=== PATIENT | male | born 1950 | race Caucasian/White ===

== ENCOUNTER → 2018-01-06 | Outpatient (CLI) | payer OTHER ==
[~2018-01-06] VITALS: Ht 289.6 cm; Wt 98.9 kg
[~2018-01-06] MED LIST: ALKA-SELTZER H1 EACH PO; ALLERGY RELIEF10 M5 PO; ASPIR 8181 MG PO; DULERA 100 MCG/13 GM INH; FIBER350 GM PO; FISH OIL 1,001000 M2 PO; GLIPIZIDE5 MG PO; METFORMIN HCL1000 MG PO; PRILOSEC 20 MG20 MG PO; STOOL SOFTENER100 M1 PO; TRADJENTA5 MG; TRICOR145 MG PO
--- NOTE | ~2018-01-06 | P ---
[facility] [place] [address] PROCEDURE REPORT Name: MORTEZA GRIMES [id number] Admission: 01/06/18 Attend Phys: Kenny Mclean Discharge: Date of : 46 Report #: [id number] THIS REPORT FOR: //name// CC: Kenny Mccoy MD DATE OF SERVICE: 01/06/2018 PROCEDURE PERFORMED: Colonoscopy. HISTORY OF PRESENT ILLNESS: The patient is a 67-year-old male with previous history of colon polyps approximately 7 years ago. He has a strong family history of colon cancer as well including two brothers and uncles. He denies any symptoms at this time. DESCRIPTION OF PROCEDURE: The risks and benefits of the procedure were explained to the patient, those risks including but not limited to bleeding, perforation and the risk of sedation. He understood these risks and gave informed consent. Sedation was given using propofol per anesthesia. Next, a digital rectal exam was initially performed, which was normal. Next, using a standard Olympus colonoscope, the scope was placed in the patient's anus and advanced under direct vision to the cecum. The overall prep was excellent. The cecum and ileocecal valve were normal in appearance. The ascending, transverse and descending colon were normal. A few scattered diverticula were noted in the sigmoid colon. No evidence of inflammation, otherwise normal. The rectal mucosa was normal. On retroflexion, no abnormalities were noted. The scope was then withdrawn and the procedure terminated. The patient tolerated the procedure well. IMPRESSION: 1. Sigmoid diverticulosis. 2. Otherwise, normal colonoscopy. RECOMMENDATIONS: Repeat colonoscopy in 5 years due to family history. Thank you for allowing me to participate in his care. By: [id number] Kenny Bains MD /nt
== END | disposition home or self-care (01) ==
LOC: GI 07:54
DX: Z12.11 Encounter for screening for malignant neoplasm of colon (principal); Z86.010 Personal history of colon polyps; Z80.0 Family history of malignant neoplasm of digestive organs; K57.30 Diverticulosis of large intestine without perforation or abscess without bleeding; J45.909 Unspecified asthma, uncomplicated; R56.9 Unspecified convulsions; Z87.891 Personal history of nicotine dependence; E78.5 Hyperlipidemia, unspecified; Z98.890 Other specified postprocedural states; Z85.828 Personal history of other malignant neoplasm of skin; K21.9 Gastro-esophageal reflux disease without esophagitis; E11.9 Type 2 diabetes mellitus without complications; Z90.49 Acquired absence of other specified parts of digestive tract
CPT/HCPCS: 62110; 62900

== ENCOUNTER 2018-08-27 08:49 | Inpatient (IN) | payer OTHER ==
[~2018-08-27] VITALS: Ht 165.1 cm; Wt 103.4 kg
[2018-08-27 08:52] VITALS: BP 162/82
[2018-08-27 09:20] LABS: URINE BILIRUBIN NEGATIVE (Negative); URINE BLOOD NEGATIVE (Negative); URINE CLARITY CLEAR; URINE COLOR YELLOW; URINE GLUCOSE-RANDOM* 1+ (Negative); URINE KETONES NEGATIVE (Negative); URINE LEUKOCYTES-REFLEX NEGATIVE (Negative); URINE NITRITE-REFLEX NEGATIVE (Negative); URINE PROTEIN (DIPSTICK) NEGATIVE (Negative); URINE UROBILINOGEN 0.2 E.U./dl (0.2-1.0)
[2018-08-27 09:22] LABS: HEMATOCRIT 37.4 % (42.0-52.0); HEMOGLOBIN 12.5 gm/dL (14.0-18.0); MCHC 33.4 g/dL (28.0-37.0); MCV 86.9 fL (80.0-100.0); RBC 4.3 mil/uL (4.50-6.00); RDW 14.9 % (10.5-14.5); WBC 4.9 thou/uL (4.0-11.0)
[2018-08-27 09:30] LABS: ANION GAP 11 mmol/L (7-16); BUN 13 mg/dL (7-18); CALCIUM 9.1 mg/dL (8.5-10.1); CHLORIDE 103 mmol/L (98-107); CO2 23 mmol/L (21-32); CREATININE 0.9 mg/dL (0.7-1.3); GLUCOSE 251 mg/dL (74-106); POTASSIUM 3.9 mmol/L (3.5-5.1); SODIUM 137 mmol/L (136-145)
[2018-08-27 09:37] LABS: ALBUMIN 3.8 g/dL (3.4-5.0); LIPASE 61 U/L (73-393); SGOT 25 U/L (15-37); SGPT 39 U/L (30-65); TOTAL BILIRUBIN 0.3 mg/dL (<0.1-1.0); TOTAL PROTEIN 7.2 g/dL (6.4-8.2); TROPONIN-I <0.06 ng/mL (<0.06)
[2018-08-27] MEDS ORDERED: KRILL OIL 5001 EACH PO (09:39)
--- NOTE | 2018-08-27 10:10 | NUR ---
PT TO CT VIA CART.
--- NOTE | 2018-08-27 10:22 | NUR ---
BACK FROM CT.
--- NOTE | 2018-08-27 12:17 | EKG ---
[place] [address] [employer] [facility] [place] [address] ELECTROCARDIOGRAM REPORT Name: MORTEZA GRIMES Room #: 170-9 ADM IN M.R.#: [id number] ������������������ Admission: 08/27/18 ������������������ Attend Phys: Sylvester Shea MD Discharge: ������������������ Date of : 46 Report #: [id number] ����������������������������������������������������������������� [id number] THIS REPORT FOR: //name// [facility] ED Test Date: 2018-08-27 Test Time: 09:11:04 Pat Name: MORTEZA GRIMES Department: Room: 170 Gender: M Pm Technician: ADIS : 1950 Requested By: Michelle Collins Order Number: [id number] MD: Ned Camacho Measurements Intervals [place] Rate: 72 P: 54 [place]: 165 QRS: 23 QRSD: 104 T: 8 QT: 402 QTc: 440 Interpretive Statements Sinus rhythm Early transition Consider inferior infarct Nonspecific ST-T wave changes No previous ECG available for comparison Electronically Signed On 08-27-2018 12:16:44 PUBLIC SPEAKING INSTRUCTOR by Ned Camacho [email or web address] ��������������������������������������������� <ELECTRONICALLY SIGNED> ���������������������������������������� By: Ned Camacho MD ��������������������������������������������� 08/27/18 1216 0 0 Ned Camacho MD /EPI
[2018-08-27 14:17] VITALS: BP 132/78
[2018-08-27 14:27] VITALS: BP 142/78
[2018-08-27 14:43] VITALS: BP 143/78
[2018-08-27 17:03] VITALS: BP 150/82
--- NOTE | 2018-08-27 19:39 | NUR ---
ASSUMED CARE OF PT AT APPROX 1500. ARRIVED FROM ED IN STABLE CONDITION. ADMISSION ASSESSMENT COMPLETED. A&O, X4. REPETITIVE SPEECH NOTED AT TIMES. C/O ABD PAIN, N/V. PAIN MEDS GIVEN ORDERED. MAINTAINING NPO STATUS. PT LIVES IN A DUPLEX WITH HIS . USUALLY USES A CANE TO GET AROUND. NO OXYGEN, NO HEARING AIDS, NO DENTURES. PT HAS SHOES, JEANS, COAT ONLY. ACHS, NO INSULIN NEEDED THIS SHIFT. VSS. PT IN STABLE CONDITION.
[2018-08-27 20:13] VITALS: BP 147/86
[2018-08-28 06:02] VITALS: BP 133/82
[2018-08-28 07:16] LABS: HEMATOCRIT 34.2 % (42.0-52.0); MCH 30.4 pg (26.0-34.0); MCHC 35.1 g/dL (28.0-37.0); MCV 86.6 fL (80.0-100.0); RBC 3.95 mil/uL (4.50-6.00); RDW 14.9 % (10.5-14.5); WBC 3.5 thou/uL (4.0-11.0)
[2018-08-28 07:35] LABS: CALCIUM 8.6 mg/dL (8.5-10.1); CREATININE 0.9 mg/dL (0.7-1.3); POTASSIUM 4.2 mmol/L (3.5-5.1)
--- NOTE | 2018-08-28 07:56 | NUR ---
ASSUMED CARE AT 1900, ASSESSMENT COMPLETED. PT DENIED SOB. REPORTED MID-ABD PAIN 4 OUT OF 10, REFUSED PAIN MEDS OVERNIGHT. DENIED NAUSEA. UP AD NADEEN IN ROOM, NPO OVERNIGHT, IV FLUIDS INFUSING. HS BLOOD SUGAR WNL, NO INSULIN GIVEN. PT REPORTS HAVING MULTIPLE EPISODES OF DIARRHEA, BUT STATES HE NORMALLY TAKES STOOL SOFTENERS OR FIBER DAILY TO HELP HIM HAVE BM. NO OTHER CONCERNS, SHIFT REPORT GIVEN AT 0700.
[2018-08-28 10:39] VITALS: BP 142/85
--- NOTE | 2018-08-28 10:40 | NUR ---
RECEIVED PT FROM . VITAL SIGNS STABLE. PT IS AWAKE, ALERT/ORIENTED X4. DENIES PAIN OR NAUSEA AT THIS TIME. REPORTS LOOSE STOOLS OVERNIGHT. PT REQUESTED SHOWER SO IV LOCKED AND WRAPPED FOR PROTECTION. WILL CONTINUE CURRENT CARE.
--- NOTE | 2018-08-28 11:34 | NUR ---
ASSUMED CARE OF PT AT 0700. ASSESSMENT COMPLETED. A&O,X4. DENIES ABD PAIN, N/V. REPORTS 6 EPISODES OF DIARRHEA OVERNIGHT. NO PAIN OR NAUSEA MEDS REQUESTED AT THIS TIME. SKIN INTACT. ROOM AIR. MAINTAINING NPO STATUS. ACHS, BG 206, SLIDING SCALE INSULIN HELD DUE TO NPO. AT BEDSIDE. PT TRANSFERED TO ROOM 224 VIA WHEELCHAIR IN STABLE CONDITION. BELONGINGS GATHERED.
--- NOTE | 2018-08-28 13:13 | NUR ---
PT HAD CLEAR LIQUIDS FOR LUNCH AND TOLERATED WELL. IVF DISCONTINUED. WILL MONITOR FOR PAIN, NAUSEA, VOMITTING AND ADVANCE TO REGULAR DIET FOR DINNER. OTHERWISE NO NEW CONCERNS OR COMPLAINTS. PT UP AND AROUND IN ROOM. AT BEDSIDE.
--- NOTE | 2018-08-28 17:47 | NUR ---
PT TOLERATED REGULAR DIET WELL. NO NAUSEA/VOMITTING OR PAIN. PHYSICIAN NOTIFIED.
[2018-08-28 18:43] VITALS: BP 142/85
== END 2018-08-28 19:02 | disposition home or self-care (01) | DRG 440 ==
LOC: ER 08:49 → EROBS 11:27 → 4E 14:28 → SICU 08-28 10:37
PROVIDERS: Student in an Organized Health Care Education/Training Program; ADMIT Hospitalist
DX: K85.90 Acute pancreatitis without necrosis or infection, unspecified (principal); E11.9 Type 2 diabetes mellitus without complications; E78.5 Hyperlipidemia, unspecified; J45.909 Unspecified asthma, uncomplicated; K21.9 Gastro-esophageal reflux disease without esophagitis; Z79.82 Long term (current) use of aspirin; Z79.84 Long term (current) use of oral hypoglycemic drugs; Z90.49 Acquired absence of other specified parts of digestive tract; Z88.8 Allergy status to other drugs, medicaments and biological substances; Z87.891 Personal history of nicotine dependence
CPT/HCPCS: 10783

== ENCOUNTER → 2019-05-03 | Outpatient (CLI) | payer OTHER ==
[~2019-05-03] MED LIST changes: +KRILL OIL 5001 EACH PO
== END ==
LOC: RAD 14:52
DX: M47.812 Spondylosis without myelopathy or radiculopathy, cervical region (principal); M48.02 Spinal stenosis, cervical region; M25.78 Osteophyte, vertebrae

== ENCOUNTER → 2021-06-12 | Outpatient (CLI) | payer OTHER ==
[~2021-06-12] VITALS: Ht 162.6 cm; Wt 100.1 kg
[~2021-06-12] MED LIST changes: +ADVIL200 M1 PO; +JARDIANCE25 MG PO; +METAMUCIL660 GM PO; +SYMBICORT160 MCG/4. INH; +ULTRAM50 MG PO; +VIAGRA25 MG PO; +VITAMIN C1000 MG PO
[2021-06-12 08:26] VITALS: BP 121/68
--- NOTE | 2021-06-12 09:16 | NUR ---
Pain Clinic Assessment: 1. History of Osteoarthritis: GENERALIZED ALL History of Rheumatoid Arthritis: DENIES 2. Height: 5 ft. 4 in. 162.6 cm. Weight: 220.6 lb. oz. 100.064 kg. Patient's BMI: 37.8 3. Vital Signs: BP: 121/68 Pulse: 84 Resp: 16 Temp: 02 Sat: 97 ECG Mon: 4. Pain Intensity: 8 TO 10 5. Fall Risk: Dizziness: N Needs help standing or walking: Y Fallen in the last 3 months: N Fall risk comments: 6. Patient on Blood Thinner: None 7. History of Hypertension: N 8. Opioid Therapy greater than 6 weeks: N Opiate Contract Signed: 9. Risk Assessment Tool Provided: LOW-1 10. Functional Assessment Tool: 11. Recreational Drug Use: Never Drug Type: Tobacco Use: Former Smoker Tobacco Type: Pipe Tobacco Amount or Packs/day: How Many Years: Alcohol Use: No Frequency: Quant:
== END ==
LOC: PAIN 07:00
PROVIDERS: ATTEND Anesthesiology Pain Medicine
DX: M54.16 Radiculopathy, lumbar region (principal); E78.2 Mixed hyperlipidemia; M79.604 Pain in right leg; E11.9 Type 2 diabetes mellitus without complications; Z79.82 Long term (current) use of aspirin; Z79.84 Long term (current) use of oral hypoglycemic drugs; Z88.8 Allergy status to other drugs, medicaments and biological substances; Z79.899 Other long term (current) drug therapy